=== PATIENT | female | born 1965 | race Caucasian/White ===

== ENCOUNTER → 2017-01-01 | Outpatient (CLI) | payer OTHER ==
--- NOTE | 2017-01-05 09:04 | RAD ---
DATE: 01/01/2017 EXAM: MAMMO YOU SCREENING BILATERAL HISTORY: Routine screening COMPARISON: 05/24/2012 This study was interpreted with the benefit of Computerized Aided Detection (CAD). FINDINGS: Breast Density: DENSE The breast Parenchyma is dense, which could reduce the sensitivity of mammography. Breast parenchyma level density D.. There are no dominant suspicious masses, suspicious microcalcifications or evidence of architectural distortion. Benign-appearing cyst or nodule identified in the right upper breast best seen on the CC view. IMPRESSION: Benign findings BI-RADS CATEGORY: 2 BENIGN FINDING RECOMMENDED FOLLOW-UP: 12M 12 MONTH FOLLOW-UP PQRS compliance statement: Patient information was entered into a reminder system with a target due date 01/01/2018 for the next mammogram. Mammography is a sensitive method for finding small breast cancers, but it does not detect them all and is not a substitute for careful clinical examination. A negative mammogram does not negate a clinically suspicious finding and should not result in delay in biopsying a clinically suspicious abnormality. "Our facility is accredited by the [employer] Mammography Program."
== END | disposition home or self-care (01) ==
LOC: MAMMO 11:24
PROVIDERS: ATTEND Family Medicine
DX: Z12.31 Encounter for screening mammogram for malignant neoplasm of breast (principal)
CPT/HCPCS: 77063; G0202; 77067

== ENCOUNTER → 2017-02-06 | Outpatient (CLI) | payer OTHER ==
--- NOTE | 2017-02-06 14:52 | RAD ---
APPROVED REPORT Test Type: Exercise Stress Nurse/Tech: ANTHONY Marino Test Indications: cad, cp Cardiac History: See [employer] EMR NKDA Medications: See Electronic Medical Record Medical History: See Electronic Medical Record Resting ECG: SR NS T ABN. Resting Heart Rate: 82 bpm Resting Blood Pressure: 130/84mmHg Pretest Chest Pain: Nonanginal chest pain Nurse/Tech Notes NS ST/T CHANGES CP AT PEAK OF EXCERISE IMPROVED WITH REST Consent: The procedure was explained to the patient in lay terms. Informed consent was witnessed. [place] eout was entered into [employer]. History and Stress Test performed by TOÑITO Pearce ARRT (R) (N) Stress Symptoms CP AT PEAK EXCERCISE Nonanginal chest pain occurred (Severity , min duration). POST EXERCISE Reason for Termination: Fatigue Target HR: Yes Max HR: 144 bpm 119% of Maximum Predicted HR: 144 bpm Exercise duration: 6 min:sec, 2 Stage Exercise capacity: 7METs Max Blood Pressure: 152/70mmHg Blood Pressure response to exercise: Normal blood pressure response during stress. Chest Pain: Yes. RESOLVED WITH REST ST Change: Yes. INTERPRETATION Stress EKG Conclusion: NS ST/T CHANGES, CP AT PEAK EXERCISE IMROVED WITH REST. Imaging Protocol IMAGE PROTOCOL: Rest Tc-99m/stress Tc-99m 1 day Rest: Stress: Viability: Radiopharm.Tc99m AmynlpangDu47n Sestamibi Ajby87jWc 34mCi Rest Admin Site:IV - Left HandAdministrator: TOÑITO Pearce ARRT (R)(N) Stress Admin Site: IV - Left HandAdministrator: TOÑITO Pearce ARRT (R)(N) STRESS DATA End Diast. Vol.81.0mlAv. Heart Rate92.0bpm LVEDV index BSA1.0mlCardiac Output0.1L/min End Syst. Vol.13.0mlCO Index BSA6.3L/min LVESV index BSA0.0mlMyocardial Josz181.0g Eject. Hozqmtli90.0% Stress Rates Pk. Fill Rate3.37EDV/secLVtime Pk. Fill 162.84msec Pk. Empty Rate4.42ESV/secLVtime Pk. Rlvkd845.36msec 1/3 Pk. Fill1.86EDV/sec Stress Scores Regional WT0.00Summed WT0.00 Regional WM0.00Summed WM0.00 LV Perfusion There is a moderate in intensity, moderate in size perfusion defect in the mid to distal prince-septa l region that is mostly reversible. No evidence of prior infarct or ischemia. Wall Motion Normal EF at > 70%. LV Perf. Quant 17 Seg. SSS1.00 17 Seg. SRS1.00 17 Seg. SDS0.00 Stress Defect Extent (% LAD)0.00Rest Defect Extent (% LAD)0.00Rev. Defect Extent (% LAD)0.00 Stress Defect Extent (% LCX) 0.00Rest Defect Extent (% LCX)0.00Rev. Defect Extent (% LCX)0.00 Stress Defect Extent (% RCA)0.00Rest Defect Extent (% RCA)0.00Rev. Defect Extent (% RCA)0.00 Stress Defect Extent (% MAI)0.00Rest Defect Extent (% MAI)0.00Rev. Defect Extent (% MAI)0.00 Other Information Quality:Average Risk Assessment: Moderate Risk Conclusion 1. No evidence of stress induced EKG changes with treadmill stress. CP at peak stress. 2. Moderate sized perfusion defect involving the mid to distal septum that is fully reversible 3. Normal EF at > 70% 4. Moderate risk study.
== END | disposition home or self-care (01) ==
LOC: NM 07:32
PROVIDERS: ATTEND Internal Medicine Cardiovascular Disease
DX: I25.10 Atherosclerotic heart disease of native coronary artery without angina pectoris (principal)
CPT/HCPCS: 78452; 93017; 96374; 96376; A9500

== ENCOUNTER → 2018-01-22 | Outpatient (CLI) | payer OTHER ==
--- NOTE | 2018-01-22 11:12 | RAD ---
DATE: 01/22/2018 EXAM: MAMMO YOU SCREENING BILATERAL HISTORY: Routine screening COMPARISON: 01/01/2017 This study was interpreted with the benefit of Computerized Aided Detection (CAD). The breast parenchyma is heterogeneously dense, which could reduce sensitivity of mammography. Breast parenchyma level C. FINDINGS: 2-D and 3-D tomosynthesis imaging was performed in CC and MLO projections. No new or enlarging breast densities are seen. Benign type calcifications are unchanged. No suspicious microcalcifications have developed. IMPRESSION: Stable mammograms without evidence of malignancy. BI-RADS CATEGORY: 2 BENIGN FINDING(S) RECOMMENDED FOLLOW-UP: 12M 12 MONTH FOLLOW-UP PQRS compliance statement: Patient information was entered into a reminder system with a target due date for the next mammogram. Mammography is a sensitive method for finding small breast cancers, but it does not detect them all and is not a substitute for careful clinical examination. A negative mammogram does not negate a clinically suspicious finding and should not result in delay in biopsying a clinically suspicious abnormality. "Our facility is accredited by the [employer] Mammography Program."
== END | disposition home or self-care (01) ==
LOC: MAMMO 07:58
PROVIDERS: ATTEND Family Medicine
DX: Z12.31 Encounter for screening mammogram for malignant neoplasm of breast (principal); I25.10 Atherosclerotic heart disease of native coronary artery without angina pectoris
CPT/HCPCS: 77063; 77067

== ENCOUNTER → 2019-05-01 | Outpatient (CLI) | payer OTHER ==
--- NOTE | 2019-05-02 19:29 | RAD ---
DATE: 05/01/2019 EXAM: MAMMO YOU SCREENING BILATERAL HISTORY: Routine screening COMPARISON: 01/01/2017 and 01/22/2018 mammographic exams This study was interpreted with the benefit of Computerized Aided Detection (CAD). Breast Density: HETERO The breast parenchyma is heterogenously dense, which could reduce sensitivity of mammography. Breast parenchyma level C. FINDINGS: Small masses are stable. No dominant new mass. No suspicious calcification or distortion. IMPRESSION: Stable BI-RADS CATEGORY: 1 NEGATIVE RECOMMENDED FOLLOW-UP: 12M 12 MONTH FOLLOW-UP PQRS compliance statement: Patient information was entered into a reminder system with a target due date in one year for the next mammogram. Mammography is a sensitive method for finding small breast cancers, but it does not detect them all and is not a substitute for careful clinical examination. A negative mammogram does not negate a clinically suspicious finding and should not result in delay in biopsying a clinically suspicious abnormality. "Our facility is accredited by the [employer] Mammography Program."
== END | disposition home or self-care (01) ==
LOC: MAMMO 08:06
PROVIDERS: ATTEND Family Medicine
DX: Z12.31 Encounter for screening mammogram for malignant neoplasm of breast (principal); N63.20 Unspecified lump in the left breast, unspecified quadrant; N63.10 Unspecified lump in the right breast, unspecified quadrant
CPT/HCPCS: 77063; 77067

== ENCOUNTER → 2019-10-28 | Outpatient (CLI) | payer OTHER ==
--- NOTE | 2019-10-28 17:38 | RAD ---
THYROID ULTRASOUND History: Thyroid nodule on carotid screening Comparison: None. Findings: Multiple sonographic images of the thyroid gland are submitted. Right lobe measured 4.2 x 1.6 x 2 cm. Left lobe measured 3.8 x 1.5 x 1.3 cm. Isthmus measured 0.5 cm in AP thickness. There is a heterogeneous, partially hypoechoic, although primarily solid-appearing nodule of the mid to superior right gland about 2.1 x 1.3 x 1.6 cm in size, some internal vascularity on color Doppler imaging. No other discrete thyroid nodularity is demonstrated. Impression: 1. There is heterogeneous right thyroid nodule up to 2.1 cm, no previous exams to evaluate for change. Electronically signed by: Warren Coker MD (10/28/2019 5:35 PM) [id number]
== END | disposition home or self-care (01) ==
LOC: US 13:38
PROVIDERS: ATTEND Family Medicine
DX: E04.1 Nontoxic single thyroid nodule (principal)
CPT/HCPCS: 76536

== ENCOUNTER → 2020-05-03 | Outpatient (CLI) | payer OTHER ==
--- NOTE | 2020-05-04 08:51 | RAD ---
DATE: 05/03/2020 3:22 PM EXAM: MAMMO YOU SCREENING BILATERAL HISTORY: Screening COMPARISON: 05/01/2019, 01/22/2018 and 01/01/2017 Bilateral CC and MLO views of the breasts were performed. Bilateral breast tomosynthesis was performed in CC and MLO projections. This study was interpreted with the benefit of Computerized Aided Detection (CAD). FINDINGS: Breast Density: HETERO The breast parenchyma Is heterogeneously dense, which could reduce sensitivity of mammography. Breast parenchyma level C No suspicious masses, microcalcifications or architectural distortion is present to suggest malignancy in either breast. The visualized axillae are unremarkable. IMPRESSION: No mammographic evidence of malignancy. BI-RADS CATEGORY: 1 NEGATIVE RECOMMENDED FOLLOW-UP: 12M 12 MONTH FOLLOW-UP Annual screening mammography is recommended, unless clinically indicated sooner based on symptoms or change in physical exam. PQRS compliance statement: Patient information was entered into a reminder system with a target due date for the next mammogram. Mammography is a sensitive method for finding small breast cancers, but it does not detect them all and is not a substitute for careful clinical examination. A negative mammogram does not negate a clinically suspicious finding and should not result in delay in biopsying a clinically suspicious abnormality. "Our facility is accredited by the [employer] Mammography Program."
== END | disposition home or self-care (01) ==
LOC: MAMMO 15:17
PROVIDERS: ATTEND Family Medicine
DX: Z12.31 Encounter for screening mammogram for malignant neoplasm of breast (principal)
CPT/HCPCS: 77063; 77067

== ENCOUNTER → 2021-08-16 | Outpatient (CLI) | payer OTHER ==
--- NOTE | 2021-08-16 15:25 | RAD ---
BILATERAL DIGITAL SCREENING 2-D AND 3-D MAMMOGRAM INDICATION: Routine screening. COMPARISON: Prior studies including one of 05/03/2020. Interpretation was made using CAD. FINDINGS: Breast Density: C RIGHT BREAST: No suspicious masses, calcifications or areas of architectural distortion are seen. LEFT BREAST: No suspicious masses, calcifications or areas of architectural distortion are seen. IMPRESSION: 1. No imaging evidence of malignancy. ASSESSMENT: BI-RADS 1. Negative. RECOMMENDATION: Routine annual screening mammogram. The facility will notify the patient of the results via mail. Patient information will be entered int o the mammography reminder system with a target recall date for the next mammogram. A reminder letter will be generated by the facility. Electronically signed by: Raul Foy Jr., MD (08/16/2021 3:23 PM) [id number]
== END ==
LOC: MAMMO 07:53
PROVIDERS: ATTEND Family Medicine
DX: Z12.31 Encounter for screening mammogram for malignant neoplasm of breast (principal)
CPT/HCPCS: 77063; 77067